=== PATIENT | male | born 1955 | race Caucasian/White ===

== ENCOUNTER → 2017-03-11 | Outpatient (CLI) | payer BC ==
--- NOTE | 2017-03-11 16:02 | DIAGNOSTIC IMAGING REPORT ---
RIGHT HAND MIN 3 VIEWS ROUTINE CLINICAL HISTORY: Right hand pain and swelling COMPARISON: None. DISCUSSION: There are no acute fractures. There is an old healed fracture of the fourth metacarpal. There are mild osteoarthritic type changes present most pronounced the level the first carpometacarpal joint. There is no evidence of bony erosive disease. There is dorsal soft tissue swelling. IMPRESSION: 1. Dorsal soft tissue swelling 2. No acute fractures 3. No evidence of erosive disease 3. Mild osteoarthritic changes Electronically signed by: Tarik Holley M.D. 03/11/2017 4:00 PM Dictated Date/Time: 03/11/2017 3:59 PM
== END | disposition home or self-care (01) ==
LOC: C.RAD1850 15:07
PROVIDERS: ATTEND Physician Assistant
DX: M25.541 Pain in joints of right hand (principal)

== ENCOUNTER → 2017-03-29 | Outpatient (CLI) | payer BC ==
[2017-03-29 12:32] LABS: BASO % 0.6 %; BASO ABS # 0.04 K/uL (0-0.2); COMPLETE YES; EOS % 2.1 %; HEMATOCRIT 41.4 % (42-52); IG% 0.2 %; LYMPH % 27.2 %; MEAN CELL VOLUME 91.8 fL (80-100); MEAN CORPUSCULAR HEMOGLOBIN 31.5 pg (25-34); MEAN CORPUSCULAR HGB CONC 34.3 g/dl (32-36); MEAN PLATELET VOLUME 9.5 fL (7.4-10.4); MONO % 8.9 %; PLATELET COUNT 191 K/uL (130-400); RED BLOOD COUNT 4.51 M/uL (4.7-6.1); WHITE BLOOD COUNT 6.61 K/uL (4.8-10.8)
[2017-03-29 13:03] LABS: THYROID STIMULATING HORMONE 3.01 uIu/ml (0.300-4.500)
--- NOTE | 2017-04-05 10:04 | CODING QUERY MEDICAL NECESSITY ---
CQSUPPORTING DIAGNOSIS NEEDED A supporting diagnosis is required for the test/procedure performed on this patient in order for us to be reimbursed by the patient's insurance. Please provide a supporting diagnosis for the following test/procedure listed below next to the test name along with your signature. *If there is no additional diagnosis for this patient that would support the following test/procedure please document that below next to the test/procedure. Test(s)/Procedure(s) that require a supporting diagnosis: DOS 03/29/17 VITAMIN D TEST ORDERED BY ELDA PLEITEZ Provider Signature: Date: Thank you Zunilda Wang [facility] Information Management Once completed, please kindly fax back to [phone] For questions please call [phone]
== END | disposition home or self-care (01) ==
LOC: C.LABBFT 08:58
PROVIDERS: ATTEND Physician Assistant Medical
DX: R53.83 Other fatigue (principal)

== ENCOUNTER → 2017-05-06 | Outpatient (CLI) | payer BC ==
[2017-05-09 11:21] LABS: 18KDIGG BAND REACTIVE (NONREACTIVE); 23KDIGG BAND REACTIVE (NONREACTIVE); 23KDIGM BAND REACTIVE (NONREACTIVE); 28KDIGG BAND NONREACTIVE (NONREACTIVE); 30KDIGG BAND NONREACTIVE (NONREACTIVE); 39KDIGG BAND REACTIVE (NONREACTIVE); 39KDIGM BAND NONREACTIVE (NONREACTIVE); 41KDIGG BAND REACTIVE (NONREACTIVE); 41KDIGM BAND REACTIVE (NONREACTIVE); 45KDIGG BAND REACTIVE (NONREACTIVE); 58KDIGG BAND REACTIVE (NONREACTIVE); 66KDIGG BAND REACTIVE (NONREACTIVE); 93KDIGG BAND NONREACTIVE (NONREACTIVE)
== END | disposition home or self-care (01) ==
LOC: C.LABBFT 09:26
PROVIDERS: ATTEND Physician Assistant Medical
DX: A69.20 Lyme disease, unspecified (principal); E55.9 Vitamin D deficiency, unspecified